=== PATIENT | male | born 1980 | race American Indian/Alaskan Native ===

== ENCOUNTER 2018-03-20 00:50 | Emergency (ER) | payer OTHER ==
[2018-03-20 00:54] VITALS: BP 122/70; PULSE 83; TEMP 98.1; O2SAT 96
--- NOTE | 2018-03-20 01:16 | C.PDOC ---
History Of Present Illness 37 y/o male presents to the ED complaining of throbbing pain to the left lower extremity, on and off for the last 3 days. Pain is described as increased on palpation. Patient also reports worse pain when ambulating. Otherwise he denies any focal weakness, numbness, fevers, or open wounds. Time Seen by Provider: 03/20/18 00:55 Chief Complaint (Nursing): Lower Extremity Problem/Injury History Per: Patient History/Exam Limitations: no limitations Onset/Duration Of Symptoms: Days Current Symptoms Are (Timing): Still Present Past Medical History Reviewed: Historical Data, Nursing Documentation, Vital Signs Vital Signs: Last Vital Signs Temp 98.1 F 03/20/18 00:53 Pulse 83 03/20/18 00:53 Resp BP 122/70 03/20/18 00:53 Pulse Ox 96 03/20/18 00:53 - Medical History PMH: Chronic Kidney Disease Other PMH: Cardiomyopathy Surgical History: No Surg Hx Family History: States: Unknown Family Hx - Social History Hx Alcohol Use: Yes Hx Substance Use: No - Immunization History Hx Tetanus Toxoid Vaccination: Yes Hx Influenza Vaccination: No Hx Pneumococcal Vaccination: Yes Review Of Systems Except As Marked, All Systems Reviewed And Found Negative. Constitutional: Negative for: Fever, Chills, Sweats Cardiovascular: Negative for: Chest Pain, Palpitations Respiratory: Negative for: Shortness of Breath Musculoskeletal: Positive for: Leg Pain Skin: Negative for: Rash, Lesions Neurological: Negative for: Weakness, Numbness Physical Exam - Physical Exam Appears: Non-toxic, No Acute Distress Skin: Normal Color, Warm, Dry, No Rash Head: Atraumatic, Normacephalic Eye(s): bilateral: Normal Inspection, PERRL, EOMI Oral Mucosa: Moist Neck: Normal ROM Chest: Symmetrical Cardiovascular: Rhythm Regular, No Murmur Respiratory: Normal Breath Sounds, No Accessory Muscle Use, No Wheezing Gastrointestinal/Abdominal: Soft, No Tenderness, No Distention, No Guarding Extremity: Tenderness (to the left lower extremity), Capillary Refill (< 2 sec), No Swelling, Other (No focal deficits, motor strength equal bilaterally) Pulses: Left Dorsalis Pedis: Normal, Right Dorsalis Pedis: Normal Neurological/Psych: Oriented x3, Normal Speech, Normal Motor, Normal Sensation, Normal Reflexes Gait: Steady ED Course And Treatment - Laboratory Results Result Diagrams: 03/20/18 01:25 03/20/18 01:25 O2 Sat by Pulse Oximetry: 96 (on RA) Pulse Ox Interpretation: Normal Progress Note: Blood work, UA, ordered and reviewed. CT scans taken of lumbar spine and left hip. PO naproxen administered Disposition Counseled Patient/Family Regarding: Diagnosis - Disposition Referrals: at [facility] [Outside] Disposition: HOME/ ROUTINE Disposition Time: 00:30 Condition: STABLE Instructions: Muscle and Bone Pain (DC) Forms: [employer] (Micronesian) - POA Present On Arrival: None - Clinical Impression Clinical Impression: ESRD (end stage renal disease) on dialysis, Leg pain - Scribe Statement The provider has reviewed the documentation as recorded by the Deanna Mi Provider Attestation: All medical record entries made by the Deanna were at my direction and personally dictated by me. I have reviewed the chart and agree that the record accurately reflects my personal performance of the history, physical exam, medical decision making, and the department course for this patient. I have also personally directed, reviewed, and agree with the discharge instructions and disposition.
[2018-03-20] MEDS ORDERED: Naproxen 550 mg Tab PO STA (01:18)
[2018-03-20 01:31] LABS: BASO % 0.6 % (0.0-2.0); EOS % 1.1 % (0.0-4.0); HEMOGLOBIN 14.3 g/dL (12.0-18.0); LYMPH # 2.2 K/uL (1.0-4.3); MEAN CELL VOLUME 78.9 fL (80.0-94.0); MEAN CORPUSCULAR HEMOGLOBIN 27.9 pg (27.0-31.0); MEAN CORPUSCULAR HGB CONC 35.3 g/dL (33.0-37.0); MEAN PLATELET VOLUME 8.7 fL (7.2-11.7); MONO # 0.3 K/uL (0.0-0.8); NEUT # 1.2 K/uL (1.8-7.0); NEUT % 32.3 % (50.0-75.0); NRBC % 0.2 % (0.0-2.0); RBC 5.12 Mil/uL (4.40-5.90); RED CELL DISTRIBUTION WIDTH 16.2 % (11.5-14.5); WHITE BLOOD COUNT 3.9 K/uL (4.8-10.8)
[2018-03-20] MEDS ORDERED: Naproxen 550 mg Tab PO ONE (01:31)
[2018-03-20 01:45] LABS: URINE BACTERIA RARE (<OCC); URINE BILIRUBIN NEGATIVE (NEGATIVE); URINE BLOOD NEGATIVE (NEGATIVE); URINE CLARITY Clear (Clear); URINE COLOR Yellow (YELLOW); URINE GLUCOSE (UA) NORMAL (Normal); URINE LEUKOCYTE ESTERASE NEG Leu/uL (Negative); URINE PROTEIN NEGATIVE (NEGATIVE)
[2018-03-20] MEDS ORDERED: Ciprofloxacin 400mg/200ml D5W 400 MG/200 ML BAG IVPB STA (01:47)
[2018-03-20 01:50] LABS: ALB/GLOB RATIO 1.6 (1.0-2.1); ALBUMIN 4.4 g/dL (3.5-5.0); ALT/SGPT 25 U/L (21-72); AST/SGOT 23 U/L (17-59); BLOOD UREA NITROGEN 20 mg/dL (9-20); CALCIUM 9.6 mg/dl (8.6-10.4); GFR NON-AFRICAN AMERICAN > 60
--- NOTE | 2018-03-20 09:40 | CT ---
Date of service: 03/20/2018 PROCEDURE: CT Lumbar Spine without contrast HISTORY: left sided inguinal /lumbar pain COMPARISON: None available. TECHNIQUE: Axial computed tomography images were obtained of the lumbar spine without the use of intravenous contrast. Coronal and sagittal reformatted images were created and reviewed. Radiation dose: Total exam DLP = 998.84 mGy-cm. This CT exam was performed using one or more of the following dose reduction techniques: Automated exposure control, adjustment of the mA and/or kV according to patient size, and/or use of iterative reconstruction technique. FINDINGS: VERTEBRAE: Unremarkable. No fracture. Normal alignment. DISCS/SPINAL CANAL/NEURAL FORAMINA: L1-2: No significant stenosis noted. L2-3: No significant stenosis noted. L3-4: No significant stenosis noted. L4-5: No significant stenosis noted. L5-S1: No significant stenosis noted. PARASPINAL SOFT TISSUES: Unremarkable. OTHER FINDINGS: None. IMPRESSION: No CT evidence of acute fracture or subluxation. No CT evidence of significant spinal stenosis.
--- NOTE | 2018-03-20 10:20 | CT ---
Date of service: 03/20/2018 PROCEDURE: CT of the left hip without contrast HISTORY: hip area tenderness/ radiculopathy COMPARISON: No prior similar study available for comparison. TECHNIQUE: Axial and reformatted coronal and sagittal CT images of the left hip were obtained without IV contrast administration. FINDINGS: There is no evidence of acute fracture or dislocation. There is suspicious for a spherical shape of the left femoral head due to bony protrusion located at the anterior superior aspect of the femoral head neck junction. 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 There are mild osteoarthritic changes noted. There are also small ossicles noted at lateral acetabular border which also may be related to the femoral acetabular impingement. IMPRESSION: No evidence of acute fracture or dislocation. Findings suspicious for femoroacetabular impingement as discussed above associated with mild osteoarthritic changes. Preliminary report was submitted by [facility] Radiology contains concordant findings.
== END 2018-03-20 02:52 | disposition home or self-care (01) ==
LOC: C.ER 00:50
DX: M79.662 Pain in left lower leg (principal); N18.6 End stage renal disease; Z99.2 Dependence on renal dialysis